=== PATIENT | female | born 2000 | race Two or more races ===

== ENCOUNTER 2025-03-20 10:05 | Inpatient (IN) | payer MEDICAID, SELFPAY ==
[2025-03-20] VITALS (7 sets, daily range): BP systolic 98–124; BP diastolic 67–82; PULSE 61–89; RESP 16–99; TEMP 36.4–37.1; BMI 31.7; BMI 31.8
--- NOTE | 2025-03-20 12:00 | PD.LDHP ---
Documentation for date of: 03/20/25 OB Labor/Induct. HPI History of Present Illness Chief complaint: labor pains : 3 Para: 1 Term pregnancies: 1 pregnancies: 0 Living children: 1 History of Abortions: Spontaneous and Elective: 1 History of Vaginal deliveries: 1 History of sections: No History of : No KRISTOFER: 03/17/25 Gestational Age (weeks): 40 Gestational Age (days): 6 History of present illness: 24-year-old 3 para 1-0-1-1 with intrauterine at 40 weeks and 6 days who presents to labor and delivery complaining of contractions. She was observed for a few hours and demonstrated cervical change. She denies any leaking or bleeding. She reports normal movement. She has undocumented care and undocumented labs from a clinic in [place]. She denies any problems in her . She has a previous full-term normal vaginal delivery without complications. Comments: PMHx: PCOS, Thyroid nodules benign, Anxiety. PSHx: Tonsillectomy FHx: Mother: Thyroid Cancer Social Hx: Denies any ETOH, Drug Use or SMO Meds: MVI Allergies: NKDA Review of Systems Review of Systems Narrative Review of Systems: Denies any chest pain, palpitations, cough, fever, shortness of breath or lower extremity pain. Denies any headache change in vision or right upper quadrant pain. Past Medical History Surgical History SURGICAL: Negative Section Meds Home Medications and Allergies Home Medications ?Medication ?Instructions ?Recorded ?Confirmed ?Type vitamins no.102-iron 90 1 cap PO QDAY 03/20/25 03/20/25 History mg-folate 1 mg-dha 200 mg capsule Allergies Allergy/AdvReac Type Severity Reaction Status Date / Time peanut Allergy Intermediate Rash Verified 03/20/25 10:56 OB Exam Physical Exam Vital signs: Temp Pulse Resp BP 98.1 F 71 16 124/82 03/20/25 10:05 03/20/25 10:18 03/20/25 10:05 03/20/25 10:18 Routine Respiratory Exam Comments: Clear to auscultation bilaterally Routine Cardiovascular Exam Comments: Regular rate and rhythm Routine Abdominal Exam Comments: Gravid consistent with estimated weight 8.5 pounds Detailed Labor and Delivery Exam Comments: See RN exam Routine Extremities Exam Comments: Nontender or edema Routine Skin Exam Comments: No gross rashes or lesions Routine Neurological Exam Comments: No focal deficit OB Results Labs 03/20/25 12:50 Impressions Impression: Intrauterine at 40 weeks and 6 days Early labor Anticipate spontaneous vaginal delivery Informed consent was obtained. The patient was made aware of the risk complication alternatives and benefits of operative vaginal delivery and delivery and she agrees with these modes of delivery if indicated.
[2025-03-20 13:49] LABS: Basophils # (Auto) 0.0 Thou/mm3 (0.0-0.2); Basophils % (Auto) 0 % (0-2.5); Eosinophils # (Auto) 0.1 Thou/mm3 (0.0-0.5); Eosinophils % (Auto) 1 % (0-10); Hematocrit 33.1 % (36.0-46.0); Hemoglobin 10.8 g/dL (12.0-16.0); Immature Granulocytes Auto 0.04 Thou/mm3 (0.00-0.00); Lymphocytes # (Auto) 1.5 Thou/mm3 (1.0-4.8); Lymphocytes % (Auto) 16 % (10-50); Mean Corpuscular HGB Conc 32.6 g/dl (31.0-37.0); Mean Corpuscular Hemoglobin 25.6 pg (25.0-35.0); Mean Corpuscular Volume 78 fL (80-100); Monocytes # (Auto) 0.7 Thou/mm3 (0.0-0.8); Monocytes % (Auto) 8 % (0-12); Neutrophils # (Auto) 7.0 Thou/mm3 (1.8-7.7); Neutrophils % (Auto) 75 % (37-80); Nucleated Red Blood Cell # 0.00 Thou/mm3 (0.00-0.00); Nucleated Red Blood Cell % 0 /100 WBC (0); Platelet Count 222 Thou/mm3 (140-440); RDW Standard Deviation 39.9 fL (36.4-46.3); Red Blood Count 4.22 Miln/mm3 (4.00-5.20); White Blood Count 9.4 Thou/mm3 (3.6-11.0)
[2025-03-20 18:48] LABS: Syphilis Nonreactive (Nonreactive)
[2025-03-20] MEDS: OXYTOCIN in NS 30 units 30 UNIT/500 ML BAG IV (22:51)
[2025-03-20] MEDS: RINGERS LACTATED 1000 ML 1,000 ML 100 ML IV (22:54)
[2025-03-21] VITALS (33 sets, daily range): BP systolic 66–140; BP diastolic 35–83; PULSE 52–125; RESP 13–32; TEMP 36.6–37; O2SAT 83–100
[2025-03-21] MEDS: fentaNYL CIT INJ 50 mCg/ML AMP 2ML 100 MCG IVP (01:38)
--- NOTE | 2025-03-21 03:53 | XR_ITS ---
Examination: Abdomen AP single view Technique: AP portable supine abdomen, single view Exam date and time: March 21, 2025, 0356 hrs. Indications: Emergency Findings: Rectal tube Nonobstructive bowel gas pattern. No opaque foreign body Impression: No opaque foreign body
--- NOTE | 2025-03-21 04:43 | PD.LDDS ---
DS: Providers Provider Date of admission: 03/20/25 12:58 Primary care physician: Min Carroll MD Admitting Provider: Christian Cotto MD Attending Provider on Admission: Christian Cotto MD Attending Provider on DC: Christian Cotto MD Discharging Provider: Christian Cotto MD DS: Diagnosis Problem List Completed Was Problem List Reviewed/Reconciled?: Yes Summary/Hosp Course Brief History: 24-year-old 3 para 1-0-1-1 with intrauterine at 40 weeks and 6 days who presents to labor and delivery complaining of contractions. She was observed for a few hours and demonstrated cervical change. She denies any leaking or bleeding. She reports normal movement. She has undocumented care and undocumented labs from a clinic in [place]. She denies any problems in her . She has a previous full-term normal vaginal delivery without complications. Peripartum Data Delivery Method: Low Transverse Procedures: Procedures Operation Date: 03/21/25 03:30 <No data on this case meets the specified criteria> 1: Gender: Male Disposition of : home Time Spent with Patient Time attestation: Total time spent providing and/or coordinating discharge services: Exam Vital Signs Temp Pulse Resp BP Pulse Ox 98.8 F 91 18 66/35 L 100 03/20/25 19:10 03/21/25 03:22 03/20/25 19:10 03/21/25 03:22 03/21/25 03:25 Discharge Plan Plan Patient Disposition: HOME (Self Care) Patient condition on transfer: Stable Prescriptions/Referrals Prescriptions/Med Rec: New hydrocodone-acetaminophen 5-325 mg tablet 1 tab PO Q6H MDD 4 PRN (Reason: pain) Qty: 20 0RF ibuprofen 600 mg tablet 600 mg PO Q6H PRN (Reason: pain) Qty: 30 0RF Continued ferrous sulfate 324 mg (65 mg iron) tablet,delayed release (DR/EC) 324 mg PO QDAY 30 Days Qty: 30 1RF PNV [id number] 90 mg iron- 1 mg-200 mg capsule 1 cap PO QDAY Discontinued ibuprofen 600 MG tablet 600 mg PO Q6HR PRN (Reason: PAIN) Qty: 40 0RF docusate sodium [Colace] 100 mg capsule 100 mg PO BID Qty: 14 0RF ibuprofen 600 mg tablet 600 mg PO TID PRN (Reason: pain) Qty: 30 0RF Referrals: Min Carroll MD [Primary Care Provider] - Patient/Caregiver Discharge Instructions Discharge Activity: activity as tolerated Other Discharge Activity Instructions:: Follow up office of primary OB in 1 week. Print Language: [place] Island[place] Stand Alone Forms: Kezia Award Info., Patient Portal Info Letter Planned Discharge Date 03/23/25
--- NOTE | 2025-03-21 04:43 | PD.GYNPROC ---
Operative Note - ASSOCIATE PROFESSOR OF GEOLOGY Procedure Date of procedure: 03/21/25 Procedure Performed: Primary Low Transverse C/S via Pfanensteil skin incison Indication: Intrauterine at 41 weeks Active labor Hypotension after Epidural placement refractory to ephedrine, fluid bolus and intrauterine resuscitative measures. Category 3 tracing Pre-Op diagnosis: Intrauterine at 41 weeks Active labor Hypotension after Epidural placement refractory to ephedrine, fluid bolus and intrauterine resuscitative measures. Category 3 tracing Post-Op diagnosis: Intrauterine at 41 weeks Active labor Hypotension after Epidural placement refractory to ephedrine, fluid bolus and intrauterine resuscitative measures. Category 3 tracing Anesthesia type: General Procedure description: Called at 0325 and notified that after receiving epidural patient had hypotension with subsequent prolonged bradycardia not responding to ephedrine, fluid bolus or intrauterine resuscitative measures. Called for an emergent delivery. Arrived at 03:30. Verbal informed consent was obtained and the patient was made aware of the risks, complications, alternatives and benefits of the proposed procedure. Due to the emergent nature of the procedure written consent was not performed. She was taken to the operating room where she was prepped and draped in an emergent sterile fashion. A timeout was performed as she simultaneously underwent induction of general anesthesia. A Pfannenstiel skin incision was made with the scalpel and carried through to the underlying layer of fascia with the Bovie. The fascia was nicked in the midline incision and the incision was extended bilaterally with the Bovie. The inferior aspect of the fascial incision was grasped with Adelina clamps elevated and the underlying rectus muscle dissected off with the Bovie. The superior aspect the fascial incision was grasped with Adelina clamps elevated and the underlying rectus muscle dissected off with the Bovie. The rectus muscles were in the midline. The peritoneum was grasped between 2 See clamps and entered sharply with the Metzenbaum scissors. The peritoneum was extended superiorly and inferiorly with good visualization of the bladder. The vesicouterine peritoneum was incised transversely and the bladder flap created digitally. A [place] blade was inserted. A low transverse incision was made in the uterus with a scapel and the incision was extended digitally. The infant's head delivered and the mouth and nose were suctioned with the bulb suction. The tight nuchal cord was reduced. The shoulder and body delivered atraumatically. The cord was clamped and the cord was cut.? The was handed off to the waiting Pediatric staff, cord blood and cord blood gas was collected for lab testing. The placenta was removed complete and intact. The uterus was exteriorized and cleared of all clots and debris. The uterine incision was closed with #1-0 chromic catgut suture in a running interlocking fashion. A second layer of the same suture was used to imbricate the first layer and obtain excellent hemostasis. The vesicouterine peritoneum was closed with 2-0 chromic catgut suture in a running fashion. The firm uterus was returned to the abdomen. The gutters were cleared of all clots and debris. The peritoneum was closed with 0 chromic catgut suture in running fashion. The rectus muscle was closed with 0 chromic catgut suture. The fascia was closed with 0 Vicryl beginning at each angle and ending in the center in a running fashion. At this point an intraoperative abdominal and pelvic x-ray was performed as no preoperative instrument and sponge count was possible due to the emergent nature of the procedure. No foreign body was visualized on the images obtained. The subcutaneous tissue was irrigated with warmed normal saline solution and found to be hemostatic. The subcutaneous tissue was closed with 2-0 chromic catgut suture in a running fashion. The skin was closed with 4-0 Monocryl. A Dermabond Prineo dressing was applied and a sterile pressure dressing was applied.? She tolerated the procedure well. Counts were correct. I discussed with the patient the nature of her condition, intraoperative findings and expectation for recovery all? questions answered. Estimated blood loss (ml): 900 Findings: Live male APGARs 8 and 9 Cord blood arterial 7.18 (base excess 7.5) Weight 3420g AF clear Cephalic Occiput posterior Placenta removed complete and intact Tight nuchal cord Normal appearing uterus , ovaries and fallopian tubes. Complications: none Surgical staff Tramaine Ashton CRNA Operation Date: 03/21/25 03:30 <No data on this case meets the specified criteria> Diagnosis Problem List Completed Was Problem List Reviewed/Reconciled?: Yes
[2025-03-21] MEDS: OXYTOCIN in NS 20 units 20 UNIT/1,000 ML BAG 125 UNIT IV ×2 (05:19→12:12)
--- NOTE | 2025-03-21 08:33 | PD.LDDELS ---
Data (Jang) Data Hx Section: No : 3 Term: 1 : 0 Livin Abortions: Spontaneous & Theraputic: 1 Delivery Data (Jang) Labor Data Initiation of labor: Induction Induction/Augmentation Agent: Pitocin ROM date: 03/21/25 ROM time: 01:01 Amniotic membrane rupture type: Spontaneous Amniotic fluid description: Clear Delivery Data EDC: 03/14/25 EDC calculated by:: LMP/early US confirmation Onset of labor date: 03/21/25 Onset of labor time: 02:40 delivery date: 03/21/25 [place] delivery time: 03:46 Gestational age (weeks): 41 Gestational age (days): 0 Placenta delivery date: 03/21/25 Placenta delivery time: 03:47 Delivered by: Christian Cotto Delivery nurse: ANSLEY LIZARRAGA RN [place] nurse: JAUN ROBERTS RN Associate Professor Of Management at delivery: Yes (DR. LOZANO) Other staff at delivery: SEE ORM NOTES Delivery Method Delivery method: Low Transverse Presentation: Vertex position: OP Anesthesia Type Anesthesia Type: General and Epidural Anesthesia type: General Placenta Placenta delivery description: Manual Removal Cord blood sent to lab: Yes cord blood collection: Cord Blood Type, Arterial Cord Blood Gas and Venous Cord Blood Gas Episiotomy Episiotomy description: None EBL Estimated blood loss (ml): 900 Umbilical Cord cord description: 3 Vessels Complications Complications: None Data (Jang) Data order: 1 Cotuit's gender: Male Identification band number: [id number] weight (gms): 7 lb 8.637 oz Weight (pounds): 7 lbs and 8.6 ozs Cotuit length: 20.47 in 1 minute: 8 5 minutes: 9
[2025-03-21] MEDS: DOCUSATE SOD 100 MG CAPSULE PO (09:23)
[2025-03-21] MEDS: KETOROLAC INJ 30 MG/ML VIAL IVP ×2 (09:23→15:29)
[2025-03-21 10:57] LABS: Basophils # (Auto) 0.0 Thou/mm3 (0.0-0.2); Basophils % (Auto) 0 % (0-2.5); Eosinophils # (Auto) 0.0 Thou/mm3 (0.0-0.5); Eosinophils % (Auto) 0 % (0-10); Hematocrit 26.3 % (36.0-46.0); Immature Granulocytes Auto 0.05 Thou/mm3 (0.00-0.00); Lymphocytes # (Auto) 1.1 Thou/mm3 (1.0-4.8); Lymphocytes % (Auto) 9 % (10-50); Mean Corpuscular HGB Conc 32.3 g/dl (31.0-37.0); Mean Corpuscular Hemoglobin 25.8 pg (25.0-35.0); Mean Corpuscular Volume 80 fL (80-100); Monocytes # (Auto) 0.9 Thou/mm3 (0.0-0.8); Monocytes % (Auto) 7 % (0-12); Neutrophils # (Auto) 10.7 Thou/mm3 (1.8-7.7); Neutrophils % (Auto) 84 % (37-80); Nucleated Red Blood Cell # 0.00 Thou/mm3 (0.00-0.00); Nucleated Red Blood Cell % 0 /100 WBC (0); Platelet Count 173 Thou/mm3 (140-440); RDW Standard Deviation 41.0 fL (36.4-46.3); Red Blood Count 3.30 Miln/mm3 (4.00-5.20); White Blood Count 12.8 Thou/mm3 (3.6-11.0)
[2025-03-21 11:36] LABS: Hemoglobin 8.5 g/dL (12.0-16.0)
[2025-03-21] MEDS: ceFAZolin/D5W 2 GM IV 2 GM/100 ML BAG IV ×2 (12:12→20:23)
--- NOTE | 2025-03-21 13:41 | PC.CC ---
0900-ASW completed a face to face assessment with the pt at bedside. ASW informed the pt that it was reported that the pt has h/o anxiety. Pt admitted to having anxiety and denied taking medications to treat her symptoms. Pt reported she has not been in mental health treatment for anxiety as well. Pt reports she handles anxiety on her own the best way she can. ASW talked about post depression and the risks of it. ASW talked about ways to recognize post depression and increased anxiety. Pt was receptive Pt reported that this is her second child. Pt reported that she is from the [facility] and her OB is Dr. Kumari from [place] and the infants Peds will be someone from [facility]. Pt reported she delivered via at 41 weeks and Zero days, 8/9. Pt denied having h/o CWS/CPS. To the pts knowledge, the has not been tested for her hearing yet and the has not been on lights. At this time, there are no concerns with SS. Pt stated her infant is healthy and there are no current medical concerns.
[2025-03-21] MEDS: HYDROcodone/APAP 5/325 TABLET 2 TAB PO (17:23)
[2025-03-21] MEDS: SIMETHICONE 80 MG CHEW PO (17:26)
[2025-03-21] MEDS: HYDROcodone/APAP 5/325 TABLET 1 TAB PO (21:20)
[2025-03-21] MEDS: IBUPROFEN TAB 400 MG TABLET 800 MG PO (21:20)
[2025-03-22 00:06] VITALS: BP 103/61; PULSE 90; RESP 16; TEMP 36.3; O2SAT 97
[2025-03-22] MEDS: HYDROcodone/APAP 5/325 TABLET 1 TAB PO ×4 (01:24→17:58)
[2025-03-22 04:08] VITALS: BP 118/71; PULSE 83; RESP 14; TEMP 36.4; O2SAT 98
[2025-03-22] MEDS: SIMETHICONE 80 MG CHEW PO ×2 (04:24→12:39)
[2025-03-22] MEDS: ceFAZolin/D5W 2 GM IV 2 GM/100 ML BAG IV (04:24)
[2025-03-22] MEDS: IBUPROFEN TAB 400 MG TABLET 800 MG PO ×3 (05:13→21:52)
[2025-03-22 08:03] VITALS: BP 124/75; PULSE 71; RESP 16; TEMP 36.6; O2SAT 98
[2025-03-22] MEDS: DOCUSATE SOD 100 MG CAPSULE PO ×2 (08:50→21:52)
[2025-03-22 09:08] LABS: Chlamydia trachomatis PCR Negative (Not Detect); Neisseria Gonorrhoeae DNA PCR Negative (Not Detect); Trichomonas Negative (Negative)
--- NOTE | 2025-03-22 10:01 | ESPR_ITS ---
Subjective Subjective Interval history: Patient doing well overall. Pain is controlled. She is ambulating no lightheadedness/dizziness. Voiding spontaneously since escamilla was removed, no issues. Tolerating regular diet without nausea/vomiting. Passing gas. No fevers/chills, no CP/SOB. Exam Vital Signs Temp Pulse Resp BP Pulse Ox O2 Del Method 97.8 F 71 16 124/75 98 Room Air 03/22/25 08:03 03/22/25 08:03 03/22/25 08:03 03/22/25 08:03 03/22/25 08:03 03/22/25 08:03 Narrative Exam General: well developed, well nourished, no acute distress, conversant Cardiac: normal heart rate Lungs: breathing without distress Abdomen: soft, post-gravid, non-tender, no rebound or guarding, pfannenstiel incision covered by dry/clean/intact prineo bandage. Incision well reapproximated. No erythema, drainage or induration. Fundus firm at u-2cm. Extremities: no pain with palpation of calves, trace edema of BLE Objective Labs 03/21/25 10:37 Labs: Laboratory Results - last 24 hr 03/21/25 03/21/25 10:37 15:30 WBC 12.8 H RBC 3.30 L Hgb 8.5 L D Hct 26.3 L MCV 80 MCH 25.8 MCHC 32.3 RDW Std Deviation 41.0 Plt Count 173 D Neut % (Auto) 84 H Lymph % (Auto) 9 L [place] % (Auto) 7 Eos % (Auto) 0 Baso % (Auto) 0 Neut # (Auto) 10.7 H Lymph # (Auto) 1.1 [place] # (Auto) 0.9 H Eos # (Auto) 0.0 Baso # (Auto) 0.0 Immature Gran # (Auto) 0.05 H Absolute Nucleated RBC 0.00 Immature Gran % 0 Nucleated RBC % 0 Chlam trachomat DNA PCR Negative N.gonorrhoeae DNA (PCR) Negative Trichomonas DNA Probe Negative Assessment & Plan Problem List (1) delivery delivered: Status: Acute Assessment and plan: Bee is a 24yo [id number] s/p uncomplicated emergent PLTCS after presenting in labor and experiencing hypotension immediately after epidural placement with resultant bradycardia that could not be addressed by resuscitative measures, doing well on POD 1. EBL 900ml. Delivered at 0346 on 03/21. Vitals wnl, benign exam. Hemodynamically stable with no evidence of infection. Appropriate change in H/H from 10.8 to 8.5. Plan: -Continue routine /post-op care -Regular diet -motrin 800mg PO Q8hr, norco 5/325mg PO Q6hr prn pain -iron for anemia -Encourage ambulation and use of IS -Anticipate discharge home tomorrow if meeting all milestones (2) care and examination immediately after delivery: Status: Acute Time Spent With Patient Time: Total time spent is greater than 50% in coordination of care (as documented) at patient's floor/unit and/or counseling patient:
[2025-03-22 12:34] VITALS: BP 117/80; PULSE 96; RESP 17; TEMP 36.6; O2SAT 98
[2025-03-22 20:00] VITALS: BP 113/72; PULSE 98; RESP 18; TEMP 36.9; O2SAT 98
[2025-03-22] MEDS: FERROUS SULF 325 MG TABLET PO (21:52)
[2025-03-23 03:55] VITALS: BP 111/75; PULSE 104; RESP 16; TEMP 37.1; O2SAT 99
[2025-03-23] MEDS: HYDROcodone/APAP 5/325 TABLET 1 TAB PO (04:40)
[2025-03-23 07:35] VITALS: BP 110/74; PULSE 89; RESP 15; TEMP 36.7; O2SAT 98
[2025-03-23] MEDS: FERROUS SULF 325 MG TABLET PO (08:08)
[2025-03-23] MEDS: IBUPROFEN TAB 400 MG TABLET 800 MG PO (08:08)
[2025-03-23] MEDS: DOCUSATE SOD 100 MG CAPSULE PO (08:08)
--- NOTE | 2025-03-23 09:21 | PD.LDDS ---
DS: Providers Provider Date of admission: 03/20/25 12:58 Primary care physician: Min Carroll MD Admitting Provider: Christian Cotto MD Attending Provider on Admission: Christian Cotto MD Consults: 03/21/25 07:28 Referral Routine Comment: Attending Provider on DC: Jess Patel MD Discharging Provider: Jess Patel MD DS: Diagnosis Discharge Diagnosis (1) delivery delivered: Status: Acute (2) care and examination immediately after delivery: Status: Acute (3) anemia: Status: Acute Problem List Completed Was Problem List Reviewed/Reconciled?: Yes Summary/Hosp Course Brief History: 24-year-old 3 para 1-0-1-1 with intrauterine at 40 weeks and 6 days who presents to labor and delivery complaining of contractions. She was observed for a few hours and demonstrated cervical change. She denies any leaking or bleeding. She reports normal movement. She has undocumented care and undocumented labs from a clinic in [place]. She denies any problems in her . She has a previous full-term normal vaginal delivery without complications. Bee is doing well on POD 2 s/p uncomplicated emergent primary low transverse section for bradycardia after epidural-induced hypotension. She has had an uncomplicated post-operative course, meeting all milestones and feels ready for discharge home. She is ambulating without lightheadedness, tolerating regular diet no n/v, spontaneously voiding without issue. She has no chest pain or shortness of breath. No fevers or chills. Pain well controlled. Vitals normal, benign exam. Hemodynamically stable with no evidence of infection. Post-op Hgb 8.5. Peripartum Data Delivery Method: Low Transverse Episiotomy Description: None Procedures: Procedures Operation Date: 03/21/25 03:30 Actual Procedure Side Surgeon p in OB Christian Cotto MD Status at Discharge Functional status at discharge: independent ambulation Overall status at discharge: patient is back to baseline Time Spent with Patient Time attestation: Total time spent providing and/or coordinating discharge services: Exam Vital Signs Temp Pulse Resp BP Pulse Ox O2 Del Method 98.8 F 104 H 16 111/75 99 Room Air 03/23/25 03:55 03/23/25 03:55 03/23/25 03:55 03/23/25 03:55 03/23/25 03:55 03/23/25 03:55 Narrative Exam General: well developed, well nourished, no acute distress, conversant Cardiac: normal heart rate Lungs: breathing without distress Abdomen: soft, post-gravid, non-tender, no rebound or guarding, pfannenstiel incision covered by dry/clean/intact prineo bandage. Incision well reapproximated. No erythema, drainage or induration. Fundus firm at u-2cm. Extremities: no pain with palpation of calves, trace edema of BLE Discharge Plan Plan Patient Disposition: HOME (Self Care) Patient condition on transfer: Stable Prescriptions/Referrals Prescriptions/Med Rec: New hydrocodone-acetaminophen 5-325 mg tablet 1 tab PO Q6H MDD 4 PRN (Reason: pain) Qty: 20 0RF ibuprofen 600 mg tablet 600 mg PO Q6H PRN (Reason: pain) Qty: 30 0RF ferrous sulfate 325 mg (65 mg iron) Tablet,Delayed Release (Dr/Ec) 325 mg PO BID 30 Days Qty: 60 0RF polyethylene glycol 3350 [ClearLax] 17 gram powder in packet 17 g PO QDAY Qty: 30 0RF Continued ferrous sulfate 324 mg (65 mg iron) tablet,delayed release (DR/EC) 324 mg PO QDAY 30 Days Qty: 30 1RF PNV [id number]-[id number]-[id number] 90 mg iron- 1 mg-200 mg capsule 1 cap PO QDAY Discontinued ibuprofen 600 MG tablet 600 mg PO Q6HR PRN (Reason: PAIN) Qty: 40 0RF docusate sodium [Colace] 100 mg capsule 100 mg PO BID Qty: 14 0RF ibuprofen 600 mg tablet 600 mg PO TID PRN (Reason: pain) Qty: 30 0RF Referrals: Min Carroll MD [Primary Care Provider] - Patient/Caregiver Discharge Instructions Discharge Activity: activity as tolerated Other Discharge Activity Instructions:: Follow up office of primary OB in 1 week. Education Materials: After a Print Language: Ivorian Activity Restrictions/Additional Instructions: vaginal rest and no heavy lifting for 6 weeks. keep incision clean and dry, do no submerge. no driving while taking narcotic. Stand Alone Forms: [place] Award Info., Patient Portal Info Letter Discharge Order Discharge Orders: Discharge (Routine); Ordered 03/23/25 Ordered By: Jess Patel Planned Discharge Date 03/23/25
[2025-03-23] MEDS: ACETAMINOPHEN 325 MG TABLET 650 MG PO (09:23)
== END 2025-03-23 14:45 | disposition home or self-care (01) | DRG 540 ==
LOC: S4SX 03-21 04:13 → S4NX 03-21 04:27
PROVIDERS: Admitting Provider Specialist; PCP Family Medicine; Visit Provider Specialist
PROC: 10D00Z1 Extraction of Products of Conception, Low, Open Approach (ICD-10-PCS; CPT 59514; principal; 2025-03-21 03:30)
DX: O48.0 Post-term pregnancy (principal); Z37.0 Single live birth; Z3A.40 40 weeks gestation of pregnancy; Z3A.41 41 weeks gestation of pregnancy; O69.1XX0 Labor and delivery complicated by cord around neck, with compression, not applicable or unspecified; I95.2 Hypotension due to drugs; T41.3X5A Adverse effect of local anesthetics, initial encounter; O9A.22 Injury, poisoning and certain other consequences of external causes complicating childbirth; O76 Abnormality in fetal heart rate and rhythm complicating labor and delivery; O90.81 Anemia of the puerperium; D64.9 Anemia, unspecified
CPT/HCPCS: 36415; 74018; 85025; 86780; 86850; 86900; 86901; 86923; 87491; 87591; 87661; 94762; A4217; A4314; A4649; J0689; J1171; J1885; J2250; J2371; J2590; J2704; J2795; J3010; J3490; J7120; A9270